=== PATIENT | male | born 1960 | race Hispanic/Latino ===

== ENCOUNTER 2019-12-09 03:04 | Emergency (ER) | payer OTHER ==
[2019-12-09 03:33] LABS: Basophils # (Auto) 0.1 K/mm3 (0.0-0.1); Basophils % (Auto) 0.9 % (0.0-1.8); Eosinophils # (Auto) 0.1 K/mm3 (0.0-0.4); Hematocrit 47.5 % (35.5-45.6); Hemoglobin 15.9 gm/dl (11.8-15.2); Lymphocytes # (Auto) 1.5 K/mm3 (1.2-5.4); Lymphocytes % (Auto) 17.4 % (13.4-35.0); Mean Corpuscular HGB Conc 33 % (32-34); Mean Corpuscular Volume 88 fl (84-94); Monocytes # (Auto) 0.7 K/mm3 (0.0-0.8); Monocytes % (Auto) 8.3 % (0.0-7.3); Platelet Count 254 K/mm3 (140-440); Red Blood Count 5.43 M/mm3 (3.65-5.03); Red Cell Distribution Width 13.5 % (13.2-15.2)
[2019-12-09 03:57] LABS: Alanine Aminotransferase 33 units/L (7-56); Albumin 4.5 g/dL (3.9-5); BUN/Creatinine Ratio 20; Blood Urea Nitrogen 22 mg/dL (9-20); Calcium 10.1 mg/dL (8.4-10.2); Hemolysis Index 16
[2019-12-09 08:29] VITALS: BP 111/68
--- NOTE | 2019-12-09 08:45 | Cat Scan Report ---
CT abdomen pelvis wo con INDICATION: r/o kidney stone, left flank pain. TECHNIQUE: All CT scans at this location are performed using the following dose modulation technique: Automated exposure control. CONTRAST: None. COMPARISON: None available. CT ABDOMEN: Evaluation the parenchymal organs demonstrates mild/moderate distention of the left renal collecting system and ureter extending to the level of a stone at the level of L3 measuring 6 mm in its greatest transverse dimension. The stone measures 1 cm in length. The remaining parenchymal organs are unremarkable other than benign-appearing splenic calcification a nd fatty infiltration of the liver. Negative for abdominal mass, fluid or inflammation. The bowel is not dilated or thickened. A normal a ppendix is identified. CT PELVIS: The prostate gland is prominently enlarged. Negative for pelvic mass, fluid or inflammatio n. IMPRESSION: 1. 6 x 10 mm stone left ureter at L3 with mild/moderate obstruction. 2. Prostate enlargement. Signer Name: Ian Finn MD Signed: 12/09/2019 8:41 AM Workstation Name: [id number]
--- NOTE | 2019-12-09 09:39 | Emergency Department Report ---
ED Male HPI - General Chief complaint: Abdominal Pain Stated complaint: ABD PAIN Time Seen by Provider: 12/09/19 05:56 Source: patient Mode of arrival: Ambulatory Limitations: No Limitations - History of Present Illness Initial comments: 59-year-old male states that 3 hours prior to arriving to the emergency room he developed left flank pain radiating to the left groin. He described the pain as severe, he vomited 5 because of the pain. Upon examination patient states the pain has now subsided. He denies fever chill, no chest pain no sob, no diarrhea. Hx of kidney stone 7 years ago. Radiation: none - Related Data Previous Rx's Medication Instructions Recorded Last Taken Type HYDROcodone/APAP 5-325 [[place] 1 each PO Q4HR PRN #12 tablet 12/09/19 Unknown Rx 5/325] Ibuprofen [Motrin] 800 mg PO Q8HR PRN #15 tablet 12/09/19 Unknown Rx Sulfamethoxazole/Trimethoprim 1 each PO BID 5 Days #10 tablet 12/09/19 Unknown Rx [Bactrim DS TAB] Allergies Allergy/AdvReac Type Severity Reaction Status Date / Time ciprofloxacin Allergy Anaphylaxis Verified 12/09/19 03:13 ED Review of Systems ROS: Stated complaint: ABD PAIN Other details as noted in HPI Constitutional: no symptoms reported. denies: chills, fever Respiratory: denies: cough Cardiovascular: denies: chest pain Endocrine: no symptoms reported Gastrointestinal: abdominal pain (left groin ), vomiting (x 5 ) Genitourinary: denies: urgency, dysuria, hematuria Musculoskeletal: back pain (left flank) Skin: denies: rash ED Past Medical Hx - Past Medical History Previous Medical History?: Yes Hx Renal Disease: Yes (hx of kidney stone 7 years ago ) - Surgical History Past Surgical History?: Yes Additional Surgical History: Knee - Social History Smoking Status: Former Smoker Substance Use Type: None - Medications Home Medications: Home Medications Medication Instructions Recorded Confirmed Last Taken Type HYDROcodone/APAP 5-325 [[place] 1 each PO Q4HR PRN #12 tablet 12/09/19 Unknown Rx 5/325] Ibuprofen [Motrin] 800 mg PO Q8HR PRN #15 tablet 12/09/19 Unknown Rx Sulfamethoxazole/Trimethoprim 1 each PO BID 5 Days #10 tablet 12/09/19 Unknown Rx [Bactrim DS TAB] ED Physical Exam - General Limitations: No Limitations General appearance: alert, in no apparent distress - Head Head exam: Present: atraumatic - Eye Eye exam: Present: normal appearance. Absent: scleral icterus - ENT ENT exam: Present: normal exam - Neck Neck exam: Present: normal inspection - Respiratory Respiratory exam: Present: normal lung sounds bilaterally - Cardiovascular Cardiovascular Exam: Present: regular rate, normal heart sounds - GI/Abdominal GI/Abdominal exam: Present: soft, normal bowel sounds. Absent: distended, tenderness, guarding, rebound - Extremities Exam Extremities exam: Present: normal capillary refill - Back Exam Back exam: Present: normal inspection, full ROM. Absent: CVA tenderness (R), CVA tenderness (L) - Neurological Exam Neurological exam: Present: alert, oriented X3 - Psychiatric Psychiatric exam: Present: normal affect - Skin Skin exam: Present: warm, dry, intact, normal color. Absent: rash ED Course Vital Signs 12/09/19 12/09/19 03:10 08:27 Temperature 97.5 F L 98.2 F Pulse Rate 77 76 Respiratory 15 16 Rate Blood Pressure 136/89 Blood Pressure 111/68 [Left] O2 Sat by Pulse 99 98 Oximetry - Reevaluation(s) Reevaluation #1: 12/09/19 09:49 Pt denies pain. He was able to void without difficulty CT findings discussed with patient. Awaiting urinalysis results. ED Medical Decision Making - Lab Data Result diagrams: 12/09/19 03:14 12/09/19 03:14 - Radiology Data Radiology results: report reviewed CTof abd/pelvis without contrast IMPRESSION: 1. 6 x 10 mm stone left ureter at L3 with mild/moderate obstruction. 2. Prostate enlargement. - Medical Decision Making 59-year-old male complaining of sudden onset of left flank pain radiating to the left groin. Urine negative for blood+ for elevated WBC. CBC and CMP normal renal function no elevated white count. CT PELVIS: The prostate gland is prominently enlarged. Negative for pelvic mass, fluid or inflammation. IMPRESSION: 1. 6 x 10 mm stone left ureter at L3 with mild/moderate obstruction. 2. Prostate enlargement. Above findings discussed with patient. He is instructed of the need to follow-up with a urologist as soon as possible. Patient also instructed to return to the emergency room if he cannot urinate or if he develops any fever or worsening pain. Given RX for antibiotic and pain medication. Patient's findings and plan of care discussed with Dr. Pruett and she agrees with plan of care discharge home with follow up with UROLOGIST Critical Care Time: No Critical care attestation.: If time is entered above; I have spent that time in minutes in the direct care of this critically ill patient, excluding procedure time. ED Disposition Clinical Impression: Kidney stone on left side Disposition: TO HOME OR SELFCARE Is pt being admited?: No Does the pt Need Aspirin: No Condition: Stable Instructions: Kidney Stones (ED), How to Strain Your Urine (ED) Additional Instructions: U have a large kidney stone but the left ureter. Please call urologist as soon as possible to set up appointment for take pain medication and antibiotic as prescribed. Continue to hydrate herself drinking clear fluids. Return to the emergency room for fever or if you're on able to urinate. Or for worsening pain that is not controlled with pain medicine prescribed Prescriptions: Sulfamethoxazole/Trimethoprim [Bactrim DS TAB] 1 each PO BID 5 Days #10 tablet Ibuprofen [Motrin] 800 mg PO Q8HR PRN #15 tablet PRN Reason: Pain, Moderate (4-6) HYDROcodone/APAP 5-325 [[place] 5/325] 1 each PO Q4HR PRN #12 tablet PRN Reason: Pain Referrals: PRIMARY CARE, [Primary Care Provider] - 3-5 Days KIYA UPTON MD [Staff Physician] - 3-5 Days BEBE FRANCIS MD [Staff Physician] - 3-5 Days Time of Disposition: 15:46
[2019-12-09 10:14] LABS: Bilirubin,Urine NEG (Negative); Blood,Urine NEG (Negative); Color,Urine Yellow (Yellow); Mucus,Urine FEW /HPF; Protein,Urine <15 mg/dL mg/dL (Negative); Urobilinogen,Urine < 2.0 mg/dL (<2.0)
== END 2019-12-09 11:43 | disposition home or self-care (01) ==
LOC: ED 03:04
DX: N20.0 Calculus of kidney (principal); Z98.890 Other specified postprocedural states; Z87.891 Personal history of nicotine dependence; Z79.899 Other long term (current) drug therapy; Z79.1 Long term (current) use of non-steroidal anti-inflammatories (NSAID); Z88.8 Allergy status to other drugs, medicaments and biological substances
CPT/HCPCS: 36415; 74176; 80053; 81001; 85025; 87086

== ENCOUNTER 2019-12-11 15:48 | Outpatient (CLI) | payer OTHER | END 2019-12-11 15:49 | disposition home or self-care (01) | LOC: ECHO 15:48 → CARD 15:48 | PROVIDERS: ATTEND Urology | DX: Z01.810 Encounter for preprocedural cardiovascular examination (principal); R94.31 Abnormal electrocardiogram [ECG] [EKG] | CPT/HCPCS: 93005; 93010 ==

== ENCOUNTER 2019-12-27 10:34 | Outpatient (CLI) | payer OTHER ==
--- NOTE | 2019-12-27 14:10 | Cat Scan Report ---
CT OF THE ABDOMEN AND PELVIS WITHOUT CONTRAST INDICATION / CLINICAL INFORMATION: N20.0 CALCULUS OF KIDNEY. TECHNIQUE: All CT scans at this location are performed using CT dose reduction for ALARA by means of automated e xposure control. COMPARISON: 12/09/19. FINDINGS: ABDOMEN: There is a 6.5 x 5.0 mm (according to my measurements) calculus in the proximal left ureter at the L3 level near the ureteropelvic junction. Mild dilatation of the left renal pelvis has shown s light improvement. Left perinephric soft tissue stranding has improved significantly. No new finding is seen in the abdomen. There is diffuse fatty infiltration of the liver. Old calcified granulomatous disease is present in the right chest and spleen. PELVIS: Enlargement of the prostate gland is again noted. The distal ureters and urinary bladder are normal. No new abnormality is seen in the pelvis. IMPRESSION: 6.5 x 5.0 mm calculus in the left ureter near the ureteropelvic junction has not changed position. The degree of hydronephrosis and perinephric soft tissue stranding has improved. Signer Name: Avila Mccain MD Signed: 12/27/2019 2:06 PM Workstation Name: [id number]
== END 2019-12-27 10:35 | disposition home or self-care (01) ==
LOC: CT 10:34
PROVIDERS: ATTEND Urology
DX: N20.0 Calculus of kidney (principal); K76.0 Fatty (change of) liver, not elsewhere classified
CPT/HCPCS: 74176

== ENCOUNTER 2020-01-29 08:01 | Day surgery (SDC) | payer OTHER ==
[~2020-01-29 08:01] MED LIST: LACTATED RINGERS 1,000 ML IV SCH
[2020-01-29] MEDS ORDERED: MIDAZOLAM 2 MG/2 ML INJ IV ONE (09:58)
[2020-01-29] MEDS ORDERED: fentaNYL 100 MCG/2 ML INJ IV ONE (09:58)
[2020-01-29] MEDS ORDERED: FAMOTIDINE 20 MG/2 ML INJ IV NR (10:00)
[2020-01-29] MEDS ORDERED: fentaNYL 100 MCG/2 ML INJ ONE (10:20)
[2020-01-29] MEDS ORDERED: ONDANSETRON 4 MG/2 ML INJ ONE (10:20)
[2020-01-29] MEDS ORDERED: LIDOCAINE MPF (2%) 20 MG/1 ML VIAL 5 ML ONE (10:20)
[2020-01-29] MEDS ORDERED: dexAMETHasone 20 MG/5 ML VIAL ONE (10:20)
[2020-01-29] MEDS ORDERED: propofoL 200 MG/20 ML VIAL IV ONE (10:21)
[2020-01-29] MEDS ORDERED: ceFAZolin/STERILE WATER 2 GM/20 ML SYRINGE IV NR (10:40)
--- NOTE | 2020-01-29 10:42 | Anesthesia Day of Surgery ---
Anesthesia Day of Surgery - Day of Surgery Patient Examined: Yes Patient H&P Reviewed: Yes Patient is NPO: Yes
--- NOTE | 2020-01-29 10:42 | Anesthesia Consultation ---
Anesthesia Consult and Med Hx Date of service: 01/29/20 - Airway Anesthetic Teeth Evaluation: Good ROM Head & Neck: Adequate Mental/Hyoid Distance: Adequate Mallampati Class: Class II Intubation Access Assessment: Probably Good - Pulmonary Exam CTA: Yes - Cardiac Exam Cardiac Exam: RRR - Pre-Operative Health Status ASA Pre-Surgery Classification: ASA2 Proposed Anesthetic Plan: General - Pulmonary Hx Smoking: Yes (quit 15yrs) Hx Respiratory Symptoms: No Hx Sleep Apnea: No (CRISTAL PRE SCREEN LOW RISK.) - Cardiovascular System Hx Hypertension: No Hx Heart Attack/AMI: No - Central Nervous System CVA: No - Gastrointestinal Hx Gastroesophageal Reflux Disease: Yes (well controlled) - Endocrine Hx Renal Disease: No Hx Liver Disease: No Hx Insulin Dependent Diabetes: No Hx Non-Insulin Dependent Diabetes: No Hx Thyroid Disease: No - Other Systems Hx Obesity: No
[2020-01-29] MEDS ORDERED: FUROSEMIDE 40 MG/4 ML INJ ONE (11:38)
[2020-01-29] MEDS: fentaNYL 100 MCG/2 ML INJ IV PRN ×2 (12:28→12:42)
--- NOTE | 2020-01-29 12:28 | Post Operative Note ---
Date of procedure: 01/29/20 Pre-op diagnosis: ureteral stone Post-op diagnosis: same Findings: upper ureter Procedure: cysto rpg ureteroscopy stent Anesthesia: GETA Surgeon: BEBE FRANCIS Estimated blood loss: minimal Pathology: none Condition: stable Disposition: PACU
--- NOTE | 2020-01-29 12:29 | Discharge Summary ---
Short Stay Discharge Plan Activity: other (no straining ) Weight Bearing Status: Full Weight Bearing Diet: low fat, low cholesterol, low salt Special Instructions: other (inc fluids ) Durable Medical Equipment Needed Upon Discharge: other (home with fol;ey ) Follow up with: PRIMARY CARE, [Primary Care Provider] - 7 Days BEBE FRANCIS MD [Staff Physician] - 7 Days
[2020-01-29 13:03] VITALS: BP 133/85
--- NOTE | 2020-01-29 14:15 | Fluoroscopy Report ---
FLUOROSCOPY RETROGRADE PYELOGRAMS FLUOROSCOPY URETER/NEPHROSTOMY DILATATION LEFT HISTORY: Left kidney stone COMPARISON: CT abdomen pelvis dated 12/27/2019 FINDINGS: 1.3 minutes of fluoroscopy time was provided by radiology during retrograde urography. 11 f luoroscopic images are presented. The images of the left retrograde pyelogram demonstrate a filling defect in the proximal left ureter consistent with a stone. Subsequent images demonstrate balloon dilatation of the left ureter and plac ement of a left ureteral stent which adequately drains the left collecting system on the final image. No right retrograde urogram images are presented. Please correlate with the procedural report as nee ded. Signer Name: Noe Arciniega Jr, MD Signed: 01/29/2020 2:11 PM Workstation Name: [id number]
--- NOTE | 2020-01-29 14:52 | Operative Report ---
PREOPERATIVE DIAGNOSES: Left ureteral obstruction, hydronephrosis pain. POSTOPERATIVE DIAGNOSES: Left ureteral obstruction, hydronephrosis pain with left upper ureteral stone fragment and narrowing and a very large prostate for same. PROCEDURES PERFORMED: Cystoscopy, left retrograde, left ureteral balloon dilatation, ureteroscopy, double-J stent insertion and Wilhelm insertion. SURGEON: Jr Apodaca MD ANESTHESIA: General. FINDINGS: A gentleman with severe intermittent pain, had previous lithotripsy, passed some gravel, still has a stone. He now presents for treatment. DESCRIPTION OF PROCEDURE: The patient was brought to the operating room and placed on the operating table. Following induction of anesthesia, placed in lithotomy position, prepped and draped in usual sterile fashion. Cystourethroscopy showed a large vascular prostate with trabeculated bladder, 2+. Retrograde showed almost like a filling defect and narrowing in the upper ureter with no distinct stone seen on the marine fuel dock attendant film. There was mild hydronephrosis. Two wires coiled up in the kidney. Balloon dilatation was carried out with a wasting in the lower ureter. The ureteroscope got up to the area of narrowing, which was severe. We even tried the ureteral access the internal portion to dilate it, but it was too narrow where the stone was stuck. The patient tolerated the procedure well. A 6-[place] 26 cm double J coiled, we did not leave a string. We left a Wilhelm because the prostate was oozing. Postop and recovery, the urine was little [place]ough[place] and this was discussed with him. We will leave the catheter for a couple of days, was brought to recovery in stable condition. JOB# [id number] JONO/MATTHEW
--- NOTE | 2020-01-29 15:15 | Post Anesthesia Evaluation ---
- Post Anesthesia Evaluation Patient Participated: Yes Airway Patent: Yes Stable Respiratory Function: Yes Nausea/Vomiting: No Temp > 96.8F: Yes Pain Manageable: Yes Adequeate Hydration: Yes Anesthesia Complications: No
== END 2020-01-29 14:01 | disposition home or self-care (01) ==
LOC: OR 08:01
PROVIDERS: ATTEND Urology
DX: N13.1 Hydronephrosis with ureteral stricture, not elsewhere classified (principal); N20.1 Calculus of ureter; Z88.8 Allergy status to other drugs, medicaments and biological substances; G43.909 Migraine, unspecified, not intractable, without status migrainosus; K21.9 Gastro-esophageal reflux disease without esophagitis; Z98.890 Other specified postprocedural states; Z79.899 Other long term (current) drug therapy; Z87.891 Personal history of nicotine dependence
CPT/HCPCS: 52332; 74420; 74485; C1726; C1758; C1769; C2617; J0690; J1100; J1940; J2250; J2405; J2704; J3010; J7120; Q9967

== ENCOUNTER 2020-03-04 06:18 | Day surgery (SDC) | payer OTHER ==
[~2020-03-04 06:18] MED LIST changes: +MIDAZOLAM 2 MG/2 ML INJ IV NR
--- NOTE | 2020-03-04 08:17 | Anesthesia Consultation ---
Anesthesia Consult and Med Hx - Airway Anesthetic Teeth Evaluation: Good ROM Head & Neck: Adequate Mental/Hyoid Distance: Adequate Mallampati Class: Class I Intubation Access Assessment: Good - Pulmonary Exam CTA: Yes - Cardiac Exam Cardiac Exam: RRR - Pre-Operative Health Status ASA Pre-Surgery Classification: ASA2 Proposed Anesthetic Plan: General - Pulmonary Hx Smoking: Yes (quit 15yrs) Hx Respiratory Symptoms: No Hx Sleep Apnea: No (CRISTAL PRE SCREEN LOW RISK.) - Cardiovascular System Hx Hypertension: No Hx Heart Attack/AMI: No - Central Nervous System CVA: No - Gastrointestinal Hx Gastroesophageal Reflux Disease: Yes (well controlled) - Endocrine Hx Renal Disease: No Hx Liver Disease: No Hx Insulin Dependent Diabetes: No Hx Non-Insulin Dependent Diabetes: No Hx Thyroid Disease: No - Other Systems Hx Cancer: No Hx Obesity: No
--- NOTE | 2020-03-04 08:18 | Anesthesia Day of Surgery ---
Anesthesia Day of Surgery - Day of Surgery Patient Examined: Yes Patient H&P Reviewed: Yes Patient is NPO: Yes
[2020-03-04] MEDS ORDERED: ceFAZolin/STERILE WATER 2 GM/20 ML SYRINGE IV NR (08:30)
[2020-03-04] MEDS ORDERED: MIDAZOLAM 2 MG/2 ML INJ IV NR (09:00)
[2020-03-04] MEDS ORDERED: ONDANSETRON 4 MG/2 ML INJ ONE (09:29)
[2020-03-04] MEDS ORDERED: propofoL 200 MG/20 ML VIAL IV ONE (09:30)
[2020-03-04] MEDS ORDERED: fentaNYL 100 MCG/2 ML INJ ONE (09:30)
[2020-03-04] MEDS ORDERED: LIDOCAINE MPF (2%) 20 MG/1 ML VIAL 5 ML ONE (09:30)
[2020-03-04] MEDS ORDERED: WATER FOR IRRIG STERILE 1,500 ML BOTTLE IR ONE (10:14)
[2020-03-04] MEDS ORDERED: WATER FOR IRRIG STERILE 2000 ML IR ONE (10:14)
[2020-03-04] MEDS ORDERED: PHENYLEPHRINE/NS 1,000 MCG/10 ML SYRINGE (OR USE) IV ONE (11:12)
[2020-03-04] MEDS ORDERED: LACTATED RINGERS 1,000 ML ONE (11:13)
--- NOTE | 2020-03-04 11:59 | Post Anesthesia Evaluation ---
- Post Anesthesia Evaluation Patient Participated: Yes Airway Patent: Yes Stable Respiratory Function: Yes Nausea/Vomiting: Yes Temp > 96.8F: Yes Pain Manageable: Yes Adequeate Hydration: Yes Anesthesia Complications: No
[2020-03-04] MEDS: HYDROmorphone 1 MG/1 ML INJ IV PRN ×4 (12:03→12:31)
--- NOTE | 2020-03-04 12:18 | Post Operative Note ---
Date of procedure: 03/04/20 Pre-op diagnosis: upeer ureteral stone Post-op diagnosis: same Findings: same Procedure: cysto rpg ureteroscpy stent laser Anesthesia: GETA Surgeon: BEBE FRANCIS Estimated blood loss: none Pathology: none Condition: stable Disposition: PACU
--- NOTE | 2020-03-04 12:20 | Discharge Summary ---
Short Stay Discharge Plan Activity: other (no straining ) Weight Bearing Status: Full Weight Bearing Diet: low fat, low cholesterol, low salt Special Instructions: other (inc fluids ) Durable Medical Equipment Needed Upon Discharge: other (j stent ) Additional Instructions: ACTIVITY - ADVANCE TOLERATED NO STRENUOUS ACTIVITIES CALL DR FRANCIS OFFICE IF YOU HAVE ANY QUESTIONS OR CONCERNS RELATED TO YOUR PROCEDURE. DIET - LOW FAT, LOW SALT, LOW CHOLESTEROL Follow up with: PRIMARY CAREMD [Primary Care Provider] - 7 Days BEBE FRANCIS MD [Staff Physician] - 7 Days Forms: Outpatient Surgery [facility] Inst.
--- NOTE | 2020-03-04 12:37 | Operative Report ---
PREOPERATIVE DIAGNOSIS: Impacted left upper ureteral stone. POSTOPERATIVE DIAGNOSIS: Impacted left upper ureteral stone. PROCEDURE: Cystoscopy, stone transposition, laser of stone, stent exchange, retrograde. SURGEON: Dr. Apodaca. ANESTHESIA: General. FINDINGS: This is a gentleman who had a very tight stone, failed lithotripsy and we placed a stent previously, he now presents for second stage ureteroscopy. DESCRIPTION OF PROCEDURE: The patient was brought to the operating room and placed on the operating table. Following induction of anesthesia, placed in lithotomy position, prepped and draped in usual sterile fashion. Cystourethroscopy showed the stent, which was extracted and exchanged for a wire. A second wire was placed and ureteroscopy pushed the stone up into the kidney. It was right at the elongated UPJ. We lasered it and followed it into a middle wanda and lasered it as much as we could. The patient tolerated the procedure well, looked like it fragmented great. We had to empty the renal pelvis intermittently. No significant complications. A 7-Lao double J coiled in the middle wanda and in the bladder. He was brought to recovery in stable condition. No complications. JOB# [id number] JONO/MATTHEW
[2020-03-04] MEDS ORDERED: oxyCODONE /ACETAMINOPHEN 5-325MG TAB PO PRN (13:12)
[2020-03-04 14:09] VITALS: BP 126/84
--- NOTE | 2020-03-04 14:48 | Fluoroscopy Report ---
FLUOROSCOPY RETROGRADE UROGRAPHY HISTORY: Left ureteral stone FINDINGS: Compared to 01/29/2020 exam. 1 minute and 14 seconds of fluoroscopy time was provided by radiology dur ing retrograde urography by the urologist. 8 fluoroscopic images are presented. The images demonstrat e left ureteroscopy was performed. A left ureteral stone was seen and the laser was utilized per the operative notes. The Left ureteral stent was replaced with good drainage of the left collecting syste m on the final image. Please correlate with the procedural report by urology as needed. Signer Name: Noe Arciniega Jr, MD Signed: 03/04/2020 2:43 PM Workstation Name: [id number]
== END 2020-03-04 06:19 | disposition home or self-care (01) ==
LOC: OR 06:18
PROVIDERS: ATTEND Urology
DX: N20.1 Calculus of ureter (principal); G43.909 Migraine, unspecified, not intractable, without status migrainosus; K21.9 Gastro-esophageal reflux disease without esophagitis; Z87.891 Personal history of nicotine dependence; Z79.899 Other long term (current) drug therapy; Z86.2 Personal history of diseases of the blood and blood-forming organs and certain disorders involving the immune mechanism
CPT/HCPCS: 52356; 74420; A4217; C1758; C1769; C2617; J0690; J1170; J2250; J2370; J2405; J2704; J3010; J7120; Q9967